=== PATIENT | female | born 1935 | race Caucasian/White ===

== ENCOUNTER → 2020-10-05 13:15 | Outpatient (CLI) | payer MEDICARE, SELFPAY ==
--- NOTE | 2020-10-05 13:21 | CT_ITS ---
STUDY: CT LEFT SHOULDER REASON FOR EXAM: Female, 85 years old. PRIMARY OSTEOARTHRITIS RADIATION DOSAGE (If Supplied By Facility): CTDIvol = ( 26.96 ) mGy, DLP = ( 525.49 ) mGycm TECHNIQUE: The patient was scanned in a multi detector CT scanner. High resolution transaxial imaging was performed without the administration of intravenous contrast material. Sagittal and coronal images were reconstructed. Individualized dose optimization techniques were used for this CT. COMPARISON: None. FINDINGS: There is severe narrowing and degeneration of the glenohumeral joint space with bony resorption/erosions seen in the glenoid as well as intraosseous cystic changes and peripheral cortical osteophyte formation of the humeral head. A moderate to large size joint effusion is present. No visualized fracture. Normal coracoid process. Normal visualized lateral clavicle. There is mild osteoarthritis with articular joint space narrowing. There is a Type II morphology (curved), with a neutral orientation. Normal visualized muscles and soft tissue structures. Left maxillary subcentimeter lymphadenopathy is present. CT/Extremity Upper without Contra IMPRESSION: 1. 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
== END ==
PROVIDERS: PCP Family Medicine; Referring Provider Specialist; Visit Provider Specialist
DX: M19.012 Primary osteoarthritis, left shoulder (principal)
CPT/HCPCS: 73200

== ENCOUNTER 2021-03-01 16:27 | Emergency (ER) | payer MEDICARE, SELFPAY ==
[2021-03-01 16:27] VITALS: BP 175/78; PULSE 87; RESP 16; TEMP 36.9; O2SAT 97
--- NOTE | 2021-03-01 16:49 | US_ITS ---
STUDY: VENOUS DOPPLER ULTRASOUND - BILATERAL LOWER EXTREMITIES REASON FOR EXAM: Female, 85 years old. undefined -- Swelling TECHNIQUE: Ultrasound evaluation of the deep vein system to include alegria-scale imaging and compression was performed. Alegria-scale imaging and Doppler sonographic evaluation, including duplex spectral analysis and qualitative color flow sonography, was performed. COMPARISON: None. FINDINGS: Examination is technically challenging due to patient''s inability to tolerate compression maneuvers. However, bilateral veins are patent without thrombosis. US/Venous Duplex Imag/Luc Extrem IMPRESSION: Normal venous Doppler ultrasound of the bilateral lower extremities. Electronically Signed: Babatunde Castellanos MD at 18:13 EDT Tel , Service support ,
--- NOTE | 2021-03-01 17:28 | ED.VIS.LOWEX ---
HPI History of Present Illness Chief Complaint: Lower Extremity Injury Narrative Narrative: 85-year-old female presenting with swelling of the bilateral lower extremities worse on the right. There is some erythema on the right leg. She states she has been dealing with this for about 4 weeks. She is currently on an antibiotic today for an infected shoulder arthroplasty on the left. She does not recall the name of the antibiotic. She denies any fever or chills. She denies chest pain, palpitations, shortness of breath. She does state that her legs are painful when she ambulates especially in the foot and ankles. She states she has no history of DVT but is also allergic to Eliquis. She states he was on this prophylactically postoperatively for a hip replacement. [facility] Medical History History of left shoulder fracture Home Medications aspirin 81 mg PO DAILY@0800 #30 tab.chew 05/26/15 [Rx Last Taken Unknown] famotidine 20 mg PO DAILY #30 tablet 05/26/15 [Rx Last Taken Unknown] multivitamin,df-zmfi-rcxtbsbq [Therems-M] 1 tab PO DAILYCM #30 tablet 05/26/15 [Rx Last Taken Unknown] acetaminophen [Tylenol] 650 mg PO Q6H PRN PRN 28 Days tablet 07/31/15 [Rx Last Taken Unknown] apixaban [Eliquis] 5 mg PO BID #60 tablet 08/03/15 [Rx Last Taken Unknown] celecoxib 200 mg PO BID #60 capsule 08/03/15 [Rx Last Taken Unknown] famotidine 20 mg PO DAILY #30 tablet 08/03/15 [Rx Last Taken Unknown] hydrocodone-acetaminophen 1 tab PO Q6H PRN PRN #30 tablet 08/03/15 [Rx Last Taken Unknown] iron aspgl,ps complex-vit C-sa [Ferrex 150 Plus] 150 mg PO DAILY@0800 #30 capsule 08/03/15 [Rx Last Taken Unknown] sulfamethoxazole-trimethoprim 1 tab PO BIDCM #10 tablet 08/03/15 [Rx Last Taken Unknown] Allergy/AdvReac Type Severity Reaction Status Date / Time Penicillins AdvReac Mild DOES NOT Verified 03/01/21 16:30 WANT IT/ AFRAID cefdinir AdvReac Other Verified 03/01/21 16:30 BLOOD THINNER UNSURE AdvReac Other Uncoded 03/01/21 16:31 Social History Smoking Status: Never smoker ROS ROS ED Constitutional Constitutional ED: Denies chills or fever(s) Eyes Eyes: Denies blurry vision or diplopia ENT ENT ED: Denies rhinorrhea or sore throat Cardiovascular Cardiovascular: Denies chest pain or palpitations Respiratory/Chest Respiratory/Chest: Denies cough, dyspnea or sputum Gastrointestinal Gastrointestinal: Denies abdominal pain, nausea or vomiting Genitourinary Genitourinary ED: Denies dysuria or hematuria Musculoskeletal Musculoskeletal: Reports other Details: Bilateral leg swelling and pain. Integumentary Reports other Details: Erythema to the right tibia Neurologic Neurologic: Denies headache(s) or weakness EXAM Physical Exam Const Vital Signs: 03/01/21 16:27 Temperature 98.4 F Temperature Source Temporal Pulse Rate 87 Respiratory Rate 16 Blood Pressure 175/78 H Blood Pressure Mean 110 Pulse Ox 97 Oxygen Delivery Method Room Air Positive obese General Appearance ED: NAD Nutritional Appearance: obese HEENT Reports moist mucous membranes normocephalic Eyes PERRL Resp normal respiratory effort and clear to auscultation bilaterally Cardio regular rate and regular rhythm GI non-tender Palpation: soft Extremity full ROM General Extremety ED: Yes edema General Extremity: edema Neuro oriented x3 Sensorium / Orientation: alert Skin Skin Narrative: Erythema to right tibia. Minimally tender to palpation. No crepitance. Mildly increased warmth. MDM MDM MDM Narrative Medical decision making narrative: Patient presenting with lower extremity swelling and some right tibial erythema and apparently this has been going on for about 4 weeks. She was sent to have a DVT studies of the bilateral lower extremities. It does appear that she may have an order for this as an outpatient but did check into the ER. She denies any fever, chills, chest pain, palpitations, shortness of breath. She does have pain when she ambulates. She also has does have some edema the bilateral lower extremities. Patient was prescribed Lasix and has been on doxycycline for a left shoulder infection status post left shoulder arthroplasty. Patient has not had any problems with the left shoulder. The dressing looks clean dry and intact. I did obtain DVT studies which were negative. I did speak with Dr. Jeffery Beasley who is on-call for Dr. Seaman because her paperwork shows that she is supposed to be on 4 times daily Keflex although the prescriptions portion only shows a prescription for Lasix and no Keflex is ordered. She recommended that since this is been going on for weeks that she just call the office tomorrow and I will determine whether to put her on a different antibiotic. This was discussed with the patient and she will be discharged home in stable condition. Impression: 1. Bilateral lower extremity edema Discharge Plan Triage Chief Complaint: Lower Extremity Injury ED Provider: Edgar Nolen Dx/Rx/DC Orders Prescriptions: No Action famotidine 20 MG tablet 20 mg PO DAILY Qty: 30 RF: 0 aspirin 81 MG Tab.Chew 81 mg PO DAILY@0800 Qty: 30 RF: 0 multivitamin,ih-bcfw-fckcvggh [Therems-M] 1 TABLET tablet 1 tab PO DAILYCM Qty: 30 RF: 0 acetaminophen [Tylenol] 325 MG tablet 650 mg PO Q6H PRN PRN (Reason: Pain) 28 Days RF: 0 hydrocodone-acetaminophen 1 TABLET tablet 1 tab PO Q6H PRN PRN (Reason: Severe Pain (6-10)) Qty: 30 RF: 0 famotidine 20 MG tablet 20 mg PO DAILY Qty: 30 RF: 0 iron aspgl,ps complex-vit C-sa [Ferrex 150 Plus] 150 MG capsule 150 mg PO DAILY@0800 Qty: 30 RF: 0 celecoxib 200 MG capsule 200 mg PO BID Qty: 60 RF: 0 sulfamethoxazole-trimethoprim 1 TABLET tablet 1 tab PO BIDCM Qty: 10 RF: 0 apixaban [Eliquis] 5 MG tablet 5 mg PO BID Qty: 60 RF: 2 Primary Care Provider: Colby Cortes
[2021-03-01 18:34] VITALS: BP 159/71; PULSE 79; RESP 16; O2SAT 97
== END 2021-03-01 18:35 | disposition home or self-care (01) ==
PROVIDERS: Emergency Provider Student in an Organized Health Care Education/Training Program; PCP Family Medicine
DX: R60.0 Localized edema (principal); M79.604 Pain in right leg; M79.605 Pain in left leg; Z79.82 Long term (current) use of aspirin
CPT/HCPCS: 93970; 99282; A4216

== ENCOUNTER 2021-10-19 09:30 | Outpatient (RCR) | payer MEDICARE, SELFPAY ==
[2021-10-12 09:08] VITALS: BP 161/89; PULSE 104; TEMP 36.1; BMI 28.7
--- NOTE | 2021-10-12 12:47 | PCM.WC.HP ---
History of Present Illness Date of Service: 10/12/21 Chief Complaint: Bilateral lower extremity swelling and edema associated with pain, aching, and discomfort History of Wound: This is an 86-year-old female who presents with swelling and edema in her lower extremities bilaterally, which is associated with pain, aching, and discomfort. Her symptoms and manifestations have developed over the last year. Shortly prior to the development of these symptoms and manifestations, the patient began sleeping upright in a recliner, having undergone shoulder surgery which made it difficult for her to sleep on a flat mattress. As result, she began sleeping upright in a recliner approximately 1 year ago. Following her habit of sleeping in a recliner, she began to note swelling in her lower extremities. Furthermore, she is not very active during daytime hours, and sits idlly for a good part of each day. She has graduated compression stockings of 15 to 20 mmHg compression, which she wears inconsistently. In addition, her primary care physician has prescribed a water pill. She presents for evaluation stating My legs?they hurt. [facility] Medical History (Updated 10/12/21 @ 12:[address] Aroldo Whittaker MD) Arthritis Dependent edema History of left shoulder fracture Hyperpigmentation Leg edema Leg pain Leg swelling Lipodermatosclerosis Home Medications aspirin 81 mg PO DAILY@0800 #30 tab.chew 05/26/15 [Rx Last Taken Unknown] famotidine 20 mg PO DAILY #30 tablet 05/26/15 [Rx Last Taken Unknown] multivitamin,oi-ibag-caehyukx [Therems-M] 1 tab PO DAILYCM #30 tablet 05/26/15 [Rx Last Taken Unknown] acetaminophen [Tylenol] 650 mg PO Q6H PRN PRN 28 Days tablet 07/31/15 [Rx Last Taken Unknown] apixaban [Eliquis] 5 mg PO BID #60 tablet 08/03/15 [Rx Last Taken Unknown] celecoxib 200 mg PO BID #60 capsule 08/03/15 [Rx Last Taken Unknown] famotidine 20 mg PO DAILY #30 tablet 08/03/15 [Rx Last Taken Unknown] hydrocodone-acetaminophen 1 tab PO Q6H PRN PRN #30 tablet 08/03/15 [Rx Last Taken Unknown] iron aspgl,ps complex-vit C-sa [Ferrex 150 Plus] 150 mg PO DAILY@0800 #30 capsule 08/03/15 [Rx Last Taken Unknown] sulfamethoxazole-trimethoprim 1 tab PO BIDCM #10 tablet 08/03/15 [Rx Last Taken Unknown] Allergy/AdvReac Type Severity Reaction Status Date / Time Penicillins AdvReac Mild DOES NOT Verified 03/01/21 16:30 WANT IT/ AFRAID cefdinir AdvReac Other Verified 03/01/21 16:30 BLOOD THINNER UNSURE AdvReac Other Uncoded 03/01/21 16:31 Surgical History (Updated 10/12/21 @ 12:[address] 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, right Social History Smoking Status: Never smoker Vital Signs Vital Signs Vital Signs: 10/12/21 09:08 Temperature 97.0 F L Temperature Source Temporal Pulse Rate 104 H Blood Pressure 161/89 H Blood Pressure Mean 113 Blood Pressure Source Monitor Blood Pressure Position Sitting Blood Pressure Location Left Arm Weight Weight: 178 lb Body Mass Index (BMI) 28.7 Physical Exam Const alert, oriented x3, no apparent distress and well nourished General Appearance: cooperative, comfortable, well kempt and well developed Orientation / Consciousness: awake, oriented to person, oriented to place and oriented to time HEENT normocephalic and head/scalp atraumatic Head and Scalp: normal to inspection, normocephalic and atraumatic External Ear: external ears normal Eyes PERRL and EOMs intact bilaterally General Eye: normal appearance of both eyes Resp normal respiratory effort, normal air movement, no retractions and no use of accessory muscles Effort and Inspection: able to speak in complete sentences Extremity no calf tenderness Extremity Narrative: Swelling and edema are noted bilaterally in the patient's lower extremities. Hyperpigmentation and lipodermatosclerosis is noted bilaterally in the gaiter areas. There are no open wounds or ulcerations. There are no significant dermatitic changes. General Extremity: Negative for clubbing or cyanosis Neuro oriented x3, CN's II-XII intact bilaterally and moves all extremities Sensorium / Orientation: awake, alert, oriented to person, oriented to place and oriented to time Psych Appearance: grossly normal and appropriate Attitude: calm Activity / Motor Behavior: appropriate eye contact Speech: normal speech Mood & Affect: euthymic mood Thought Process: normal thought process Thought Content: normal thought content Attention / Concentration: attention grossly intact Debridement Note Debridement Note No debridement was completed: No debridement was completed today (There are no open wounds or ulcerations) Post-Debridement Measurements and Additional Note: Post-Debridement Measurements/Treatment JAMARCUS - Nurse 1 - General Ulcer Assessment Start: 10/12/21 09:07 Freq: Status: Active Protocol: RUTH Activity Type Activity Date Activity User E-Sign Co-Sign Detail Recorded Client Recorded Date Recorded By Document 10/12/21 09:08 KATIA [id number] 10/12/21 09:14 KATIA 10/12/21 09:08 WC - Today's Visit Information Type of service Initial Visit Arrival Mode Ambulatory Accompanied by Patient Identification Verified (Name & Yes ) Height and Weight Height 5 ft 6 in Weight 178 lb Weight in Pounds 178.0 lbs Body Mass Index (BMI) 28.7 BMI Classification Overweight BSA - Jennifer 1.90 Vital Signs Temperature (97.8 F-99.1 F) 97.0 F L Temperature Source Temporal Pulse Rate (60-100) 104 H Pulse Location Monitor Blood Pressure (90/60-120/80) 161/89 H Blood Pressure Mean 113 Source Monitor Position Sitting Blood Pressure Location Left Arm History Since Last Visit- (Skip if this is Patient's initial visit) Any new allergies or adverse reactions No Had a fall/change in ADL's that may No increase risk of falls Signs or symptoms of abuse and/or No neglect since last visit Have you been in the hospital since your No last visit? Has dressing in place as prescribed No Has compression in place as prescribed N/A Has offloadiing in place as prescribed N/A Experienced any changes in pain level or No management Left Footwear Regular Shoe Right Footwear Regular Shoe Pain Scale: 0-10 Numeric Is Patient Pain Free? Yes - Nurse 1 - General Ulcer Measurement Start: 10/12/21 09:07 Freq: Status: Active Protocol: Activity Type Activity Date Activity User E-Sign Co-Sign Detail Recorded Client Recorded Date Recorded By Document 10/12/21 09:08 KATIA [id number] 10/12/21 09:14 KATIA 10/12/21 09:08 Wound Center Nurse 1 Right Calf (cm) 40.5 Right Ankle (cm) 26 Left Calf (cm) 40 Left Ankle (cm) 28 WC - Nurse 2 - General Ulcer CM Notes Start: 10/12/21 09:07 Freq: Status: Active Protocol: Activity Type Activity Date Activity User E-Sign Co-Sign Detail Recorded Client Recorded Date Recorded By Document 10/12/21 09:36 PL [id number] 10/12/21 09:37 PL 10/12/21 09:36 Pain Scale: 0-10 Numeric Is Patient Pain Free? Yes WC - Nurse 3 - General Ulcer D/C NN Start: 10/12/21 09:07 Freq: Status: Active Protocol: Activity Type Activity Date Activity User E-Sign Co-Sign Detail Recorded Client Recorded Date Recorded By Document 10/12/21 09:34 KR [id number] 10/12/21 09:35 KR 10/12/21 09:34 Wound Care Nurse 3 Left -Multi-Layered Wrap Application Multi-Layer Comp - Bilat ($ ) Pain Scale: 0-10 Numeric Is Patient Pain Free? Yes WC - Visit Discharge Discharge Condition Stable Ambulatory Status Ambulatory Transportation Private Auto Accompanied by Assessment/Plan Assessment/Plan (1) Leg pain: CODE(S): M79.606 - Pain in leg, unspecified QUALIFIERS: Laterality: bilateral Qualified Code(s): M79.604 - Pain in right leg; M79.605 - Pain in left leg (2) Hyperpigmentation: CODE(S): L81.9 - Disorder of pigmentation, unspecified (3) Lipodermatosclerosis: CODE(S): I83.10 - Varicose veins of unspecified lower extremity with inflammation (4) Leg edema: CODE(S): R60.0 - Localized edema (5) Leg swelling: CODE(S): M79.89 - Other specified soft tissue disorders (6) Dependent edema: CODE(S): R60.9 - Edema, unspecified (7) Osteoarthritis of hips, bilateral: CODE(S): M16.0 - Bilateral primary osteoarthritis of hip (8) Status post total hip replacement, left: CODE(S): Z96.642 - Presence of left artificial hip joint (9) Status post total hip replacement, right: CODE(S): Z96.641 - Presence of right artificial hip joint (10) Status post replacement of left shoulder joint: CODE(S): Z96.612 - Presence of left artificial shoulder joint (11) GERD (gastroesophageal reflux disease): CODE(S): K21.9 - Gastro-esophageal reflux disease without esophagitis (12) History of arthroplasty of right hip: CODE(S): Z96.641 - Presence of right artificial hip joint (13) Arthritis: CODE(S): M19.90 - Unspecified osteoarthritis, unspecified site PLAN: This is an 86-year-old female with swelling and edema in her lower extremities, associated with pain. It appears as though the patient began sleeping in a recliner approximately 1 year ago, following left shoulder replacement surgery. Not long after, she began to develop swelling and edema in her legs, associated with pain, aching, and discomfort. She is not very active, and does not ambulate a great deal. She sits a good deal throughout each day. She is obese. She has graduated compression stockings, which she has been wearing inconsistently. Physical examination reveals swelling and edema with hyperpigmentation and lipodermatosclerosis in the gaiter areas bilaterally. It appears as though the patient's daily habits are contributing to her presenting symptoms and manifestations. We have discussed conservative treatment measures including leg elevation, avoidance of idle standing and sitting, active lifestyle, compression, weight control measures, and [id number] analgesics. Patient has been discouraged from sleeping in a recliner. She has been advised to sleep on a flat mattress at night. Leg elevation is to be implemented even during daytime hours. Her legs are to be elevated to heart level, or higher. Activity has been encouraged. Weight loss has been recommended. Prolonged idle sitting has been discouraged. We are to implement compression to the lower extremities initially by means of 3M 2 layer compression wraps, which will be changed twice weekly. It is anticipated that the compression in the lower extremities with other measures well result in a decrease of swelling, following which the patient can be fitted with graduated compression stockings or Velcro compression garment for long-term use. Patient is to return in 1 week for reevaluation. Total time: 29 minutes
[2021-10-14 14:00] VITALS: BP 156/97; PULSE 91; RESP 18; TEMP 36.1; BMI 28.7
[2021-10-19 10:04] VITALS: BP 161/72; PULSE 84; RESP 20; TEMP 36.3; BMI 28.7
--- NOTE | 2021-10-19 12:41 | HP.PCM_ITS ---
History of Present Illness Date of Service: 10/19/21 Chief Complaint: Bilateral lower extremity swelling and edema associated with pain, aching, and discomfort History of Wound: This is an 86-year-old female who presented with swelling and edema in her lower extremities bilaterally, which was associated with pain, aching, and discomfort. Her symptoms and manifestations developed over the last year. Shortly prior to the development of these symptoms and manifestations, the patient began sleeping upright in a recliner, having undergone shoulder surgery which made it difficult for her to sleep on a flat mattress. As result, she began sleeping upright in a recliner approximately 1 year ago. Following her habit of sleeping in a recliner, she began to note swelling in her lower extremities. Furthermore, she is not very active during daytime hours, and sits idlly for a good part of each day. She has graduated compression stockings of 15 to 20 mmHg compression, which she wears inconsistently. In addition, her primary care physician has prescribed a water pill. She presented for eval uation stating My legs?they hurt. [facility] Medical History Arthritis Dependent edema History of left shoulder fracture Hyperpigmentation Leg edema Leg pain Leg swelling Lipodermatosclerosis Home Medications aspirin 81 mg PO DAILY@0800 #30 tab.chew 05/26/15 [Rx Last Taken Unknown] famotidine 20 mg PO DAILY #30 tablet 05/26/15 [Rx Last Taken Unknown] multivitamin,uk-wsbs-pjgpoxib [Therems-M] 1 tab PO DAILYCM #30 tablet 05/26/15 [Rx Last Taken Unknown] acetaminophen [Tylenol] 650 mg PO Q6H PRN PRN 28 Days tablet 07/31/15 [Rx Last Taken Unknown] apixaban [Eliquis] 5 mg PO BID #60 tablet 08/03/15 [Rx Last Taken Unknown] celecoxib 200 mg PO BID #60 capsule 08/03/15 [Rx Last Taken Unknown] famotidine 20 mg PO DAILY #30 tablet 08/03/15 [Rx Last Taken Unknown] hydrocodone-acetaminophen 1 tab PO Q6H PRN PRN #30 tablet 08/03/15 [Rx Last Taken Unknown] iron aspgl,ps complex-vit C-sa [Ferrex 150 Plus] 150 mg PO DAILY@0800 #30 capsule 08/03/15 [Rx Last Taken Unknown] sulfamethoxazole-trimethoprim 1 tab PO BIDCM #10 tablet 08/03/15 [Rx Last Taken Unknown] Allergy/AdvReac Type Severity Reaction Status Date / Time Penicillins AdvReac Mild DOES NOT Verified 03/01/21 16:30 WANT IT/ AFRAID cefdinir AdvReac Other Verified 03/01/21 16:30 BLOOD THINNER UNSURE AdvReac Other Uncoded 03/01/21 16:31 Surgical History 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, right Social History Smoking Status: Never smoker Vital Signs Vital Signs Vital Signs: 10/19/21 10:04 Temperature 97.3 F L Temperature Source Temporal Pulse Rate 84 Respiratory Rate 20 H Blood Pressure 161/72 H Blood Pressure Mean 101 Blood Pressure Source Monitor Weight Weight: 178 lb Body Mass Index (BMI) 28.7 Physical Exam Const alert, oriented x3, no apparent distress, average body habitus and well nourished General Appearance: cooperative, comfortable, well kempt and well developed Orientation / Consciousness: awake, oriented to person, oriented to place and oriented to time HEENT normocephalic, head/scalp atraumatic and hearing grossly normal bilaterally Head and Scalp: normal to inspection, normocephalic and atraumatic External Ear: external ears normal Eyes PERRL and EOMs intact bilaterally General Eye: normal appearance of both eyes Resp normal respiratory effort, normal air movement, no retractions and no use of accessory muscles Effort and Inspection: able to speak in complete sentences Extremity no calf tenderness General Extremity: Negative for clubbing or cyanosis Skin Wound Narrative: There are no open wounds or ulcerations. Mild lipodermatosclerosis and hyperpigmentation are noted in the gaiter areas bilaterally. Bilateral lower extremity swelling and edema are noted. Swelling in the right lower extremity is diminished, and nearly abated. Mild swelling persists in the patient's left lower extremity. Neuro oriented x3, CN's II-XII intact bilaterally and moves all extremities Sensorium / Orientation: awake, alert, oriented to person, oriented to place and oriented to time Psych Appearance: grossly normal and appropriate Attitude: calm Activity / Motor Behavior: appropriate eye contact Speech: normal speech Mood & Affect: euthymic mood Thought Process: normal thought process Thought Content: normal thought content Attention / Concentration: attention grossly intact Debridement Note Debridement Note No debridement was completed: No debridement was completed today (There are no open wounds or ulcerations.) Post-Debridement Measurements and Additional Note: Post-Debridement Measurements/Treatment - Nurse 1 - General Ulcer Assessment Start: 10/12/21 09:07 Freq: Status: Active Protocol: RUTH Activity Type Activity Date Activity User E-Sign Co-Sign Detail Recorded Client Recorded Date Recorded By Document 10/12/21 09:08 KR [id number] 10/12/21 09:14 KR Document 10/14/21 14:00 RB [id number] 10/14/21 14:03 RB Document 10/19/21 10:04 DL [id number] 10/19/21 10:13 DL 10/12/21 10/14/21 10/19/21 09:08 14:00 10:04 - Today's Visit Information Type of service Initial Visit Nurse-only Follow-up Visit Visit (Physician/ELECTRICAL MAINTENANCE TECHNICIAN ) Arrival Mode Ambulatory Ambulatory Ambulatory Transfer Assistance None None Accompanied by Patient Identification Verified (Name & Yes Yes Yes ) Patient Requires Transmission-Based No No Precautions Height and Weight Height 5 ft 6 in Weight 178 lb Weight in Pounds 178.0 lbs Body Mass Index (BMI) 28.7 28.7 28.7 BMI Classification Overweight Overweight Overweight BSA - Jennifer 1.90 Vital Signs Temperature (97.8 F-99.1 F) 97.0 F L 97 F L 97.3 F L Temperature Source Temporal Temporal Temporal Pulse Rate (60-100) 104 H 91 84 Pulse Location Monitor Monitor Monitor Respiratory Rate (12-18) 18 20 H Respiratory rate source Observation Observation Blood Pressure (90/60-120/80) 161/89 H 156/97 H 161/72 H Blood Pressure Mean 113 116 101 Source Monitor Monitor Monitor Position Sitting Semi-Fowlers Blood Pressure Location Left Arm Left Arm History Since Last Visit- (Skip if this is Patient's initial visit) Have you changed medications since your No No last visit? Any new allergies or adverse reactions No No No Had a fall/change in ADL's that may No No No increase risk of falls Signs or symptoms of abuse and/or No No No neglect since last visit Have you been in the hospital since your No No No last visit? Has dressing in place as prescribed No Yes Yes Has compression in place as prescribed N/A Yes Yes Has offloadiing in place as prescribed N/A No N/A Experienced any changes in pain level or No No No management Left Footwear Regular Shoe Right Footwear Regular Shoe Pain Scale: 0-10 Numeric Is Patient Pain Free? Yes Yes Yes - Nurse 1 - General Ulcer Measurement Start: 10/12/21 09:07 Freq: Status: Active Protocol: Activity Type Activity Date Activity User E-Sign Co-Sign Detail Recorded Client Recorded Date Recorded By Document 10/12/21 09:08 KR [id number] 10/12/21 09:14 KR Document 10/14/21 14:00 RB [id number] 10/14/21 14:03 RB Document 10/19/21 10:04 DL [id number] 10/19/21 10:13 DL 10/12/21 10/14/21 10/19/21 09:08 14:00 10:04 Wound Center Nurse 1 Lower Limb Edema Present Yes Right Calf (cm) 40.5 38 37.5 Right Ankle (cm) 26 24 23.4 Left Calf (cm) 40 39 37.5 Left Ankle (cm) 28 27.5 25.5 - Nurse 2 - General Ulcer CM Notes Start: 10/12/21 09:07 Freq: Status: Active Protocol: Activity Type Activity Date Activity User E-Sign Co-Sign Detail Recorded Client Recorded Date Recorded By Document 10/12/21 09:36 PL [id number] 10/12/21 09:37 PL 10/12/21 09:36 Pain Scale: 0-10 Numeric Is Patient Pain Free? Yes - Nurse 3 - General Ulcer D/C NN Start: 10/12/21 09:07 Freq: Status: Active Protocol: Activity Type Activity Date Activity User E-Sign Co-Sign Detail Recorded Client Recorded Date Recorded By Document 10/12/21 09:34 KR [id number] 10/12/21 09:35 KR Document 05/26/22 14:00 RB [id number] 10/14/21 14:03 RB Document 10/19/21 10:59 AK [id number] 10/19/21 11:00 AK 10/12/21 10/14/21 10/19/21 09:34 14:00 10:59 Wound Care Nurse 3 bilat -Lotion applied to leg before No compression wrap -Multi-Layered Wrap Application Multi-Layer Multi-Layer Comp - Bilat ($ Comp - Bilat ($ ) ) Left -Multi-Layered Wrap Application Multi-Layer Comp - Bilat ($ ) Treatment Response Procedure Tolerated Well Vital Signs Temperature (97.8 F-99.1 F) 97 F L Temperature Source Temporal Pulse Rate (60-100) 91 Pulse Location Monitor Respiratory Rate (12-18) 18 Respiratory rate source Observation Blood Pressure (90/60-120/80) 156/97 H Blood Pressure Mean 116 Source Monitor Position Semi-Fowlers Blood Pressure Location Left Arm Pain Scale: 0-10 Numeric Is Patient Pain Free? Yes Yes Yes WC - Visit Discharge Discharge Condition Stable Stable Stable Ambulatory Status Ambulatory Ambulatory Ambulatory Transportation Private Auto Private Auto Private Auto Accompanied by Medication Reconcilliation completed & No Yes provided to patient/care provider Clinical Summary of Care Provided Yes Yes Assessment/Plan Assessment/Plan (1) Leg edema: CODE(S): R60.0 - Localized edema (2) Leg swelling: CODE(S): M79.89 - Other specified soft tissue disorders (3) Leg pain: CODE(S): M79.606 - Pain in leg, unspecified QUALIFIERS: Laterality: bilateral Qualified Code(s): M79.604 - Pain in right leg; M79.605 - Pain in left leg (4) Dependent edema: CODE(S): R60.9 - Edema, unspecified (5) Arthritis: CODE(S): M19.90 - Unspecified osteoarthritis, unspecified site (6) Lipodermatosclerosis: CODE(S): I83.10 - Varicose veins of unspecified lower extremity with inflammation (7) Hyperpigmentation: CODE(S): L81.9 - Disorder of pigmentation, unspecified (8) Status post replacement of left shoulder joint: CODE(S): Z96.612 - Presence of left artificial shoulder joint (9) Status post total hip replacement, right: CODE(S): Z96.641 - Presence of right artificial hip joint (10) 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 with presence of antibiotic-impregnated cement spacer: CODE(S): Z89.629 - Acquired absence of unspecified hip joint QUALIFIERS: Laterality: left Qualified Code(s): Z89.622 - Acquired absence of left hip joint (11) Osteoarthritis of hips, bilateral: CODE(S): M16.0 - Bilateral primary osteoarthritis of hip (12) History of arthroplasty of right hip: CODE(S): Z96.641 - Presence of right artificial hip joint (13) GERD (gastroesophageal reflux disease): CODE(S): K21.9 - Gastro-esophageal reflux disease without esophagitis PLAN: This is an 86-year-old female with swelling and edema in her lower extremities, associated with pain. It appears as though the patient began sleeping in a recliner approximately 1 year ago, following left shoulder replacement surgery. Not long after, she began to develop swelling and edema in her legs, associated with pain, aching, and discomfort. She is not very active, and does not ambulate a great deal. She sits a good deal throughout each day. She is obese. She has graduated compression stockings, which she has been wearing inconsistently. Physical examination reveals swelling and edema with hyperpigmentation and lipodermatosclerosis in the gaiter areas bilaterally. It appears as though the patient's daily habits are contributing to her presenting symptoms and manifestations. We have discussed conservative treatment measures including leg elevation, avoidance of idle standing and sitting, active lifestyle, compression, weight control measures, and fkxd-txn-padnyih analgesics. Patient has been discouraged from sleeping in a recliner. She has been advised to sleep on a flat mattress at night. Leg elevation is to be implemented even during daytime hours. Her legs are to be elevated to heart level, or higher. Activity has been encouraged. Weight loss has been recommended. Prolonged idle sitting has been discouraged. We are to continue compression to the lower extremities by means of 3M 2 layer compression wraps, which will be changed twice weekly. It is anticipated that the compression in the lower extremities with other measures well result in a decrease of swelling, following which the patient can be fitted with graduated compression stockings or Velcro compression garments for long-term use. Patient is to return in 1 week for reevaluation. Total time: 28 minutes
== END 2021-10-19 23:59 | disposition home or self-care (01) ==
LOC: WC 09:30
PROVIDERS: PCP Family Medicine; Visit Provider Surgery
DX: I83.11 Varicose veins of right lower extremity with inflammation (principal); I83.12 Varicose veins of left lower extremity with inflammation; M16.0 Bilateral primary osteoarthritis of hip; M79.605 Pain in left leg; M79.604 Pain in right leg; K21.9 Gastro-esophageal reflux disease without esophagitis; R60.0 Localized edema; Z79.82 Long term (current) use of aspirin; Z79.899 Other long term (current) drug therapy; Z79.01 Long term (current) use of anticoagulants; Z96.612 Presence of left artificial shoulder joint; Z96.641 Presence of right artificial hip joint
CPT/HCPCS: 29581; 99213; G0463

== ENCOUNTER 2021-11-16 10:15 | Outpatient (RCR) | payer MEDICARE, SELFPAY ==
[2021-10-20 01:17] VITALS: BP 161/72; PULSE 84; RESP 20; TEMP 36.3; BMI 28.7
[2021-10-22 10:10] VITALS: BP 165/90; PULSE 93; TEMP 36.4; BMI 28.7
[2021-10-26 10:24] VITALS: BP 159/83; PULSE 93; TEMP 35.9; BMI 28.7
--- NOTE | 2021-10-26 12:26 | PCM.WC.HP ---
History of Present Illness Date of Service: 10/26/21 Chief Complaint: Bilateral lower extremity swelling and edema associated with pain, aching, and discomfort History of Wound: This is an 86-year-old female who presented with swelling and edema in her lower extremities bilaterally, which was associated with pain, aching, and discomfort. Her symptoms and manifestations developed over the last year. Shortly prior to the development of these symptoms and manifestations, the patient began sleeping upright in a recliner, having undergone shoulder surgery which made it difficult for her to sleep on a flat mattress. As result, she began sleeping upright in a recliner approximately 1 year ago. Following her habit of sleeping in a recliner, she began to note swelling in her lower extremities. Furthermore, she is not very active during daytime hours, and sits idlly for a good part of each day. She has graduated compression stockings of 15 to 20 mmHg compression, which she wears inconsistently. In addition, her primary care physician has prescribed a water pill. She presented for evaluation stating My legs?they hurt. [facility] Medical History Arthritis Dependent edema History of left shoulder fracture Hyperpigmentation Leg edema Leg pain Leg swelling Lipodermatosclerosis Home Medications aspirin 81 mg PO DAILY@0800 #30 tab.chew 05/26/15 [Rx Last Taken Unknown] famotidine 20 mg PO DAILY #30 tablet 05/26/15 [Rx Last Taken Unknown] multivitamin,ee-axxp-znlfnecv [Therems-M] 1 tab PO DAILYCM #30 tablet 05/26/15 [Rx Last Taken Unknown] acetaminophen [Tylenol] 650 mg PO Q6H PRN PRN 28 Days tablet 07/31/15 [Rx Last Taken Unknown] apixaban [Eliquis] 5 mg PO BID #60 tablet 08/03/15 [Rx Last Taken Unknown] celecoxib 200 mg PO BID #60 capsule 08/03/15 [Rx Last Taken Unknown] famotidine 20 mg PO DAILY #30 tablet 08/03/15 [Rx Last Taken Unknown] hydrocodone-acetaminophen 1 tab PO Q6H PRN PRN #30 tablet 08/03/15 [Rx Last Taken Unknown] iron aspgl,ps complex-vit C-sa [Ferrex 150 Plus] 150 mg PO DAILY@0800 #30 capsule 08/03/15 [Rx Last Taken Unknown] sulfamethoxazole-trimethoprim 1 tab PO BIDCM #10 tablet 08/03/15 [Rx Last Taken Unknown] Allergy/AdvReac Type Severity Reaction Status Date / Time Penicillins AdvReac Mild DOES NOT Verified 03/01/21 16:30 WANT IT/ AFRAID cefdinir AdvReac Other Verified 03/01/21 16:30 BLOOD THINNER UNSURE AdvReac Other Uncoded 03/01/21 16:31 Surgical History 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, right Social History Smoking Status: Never smoker Vital Signs Vital Signs Vital Signs: 10/26/21 10:24 Temperature 96.7 F L Temperature Source Temporal Pulse Rate 93 Blood Pressure 159/83 H Blood Pressure Mean 108 Blood Pressure Source Monitor Blood Pressure Position Sitting Blood Pressure Location Right Arm Weight Weight: 178 lb Body Mass Index (BMI) 28.7 Physical Exam Const alert, oriented x3, no apparent distress and well nourished General Appearance: cooperative, comfortable, well kempt and well developed Orientation / Consciousness: awake, oriented to person, oriented to place and oriented to time HEENT normocephalic, head/scalp atraumatic and hearing grossly normal bilaterally Head and Scalp: normal to inspection, normocephalic and atraumatic External Ear: external ears normal Eyes PERRL and EOMs intact bilaterally General Eye: normal appearance of both eyes Resp normal respiratory effort, normal air movement, no retractions and no use of accessory muscles Effort and Inspection: able to speak in complete sentences Extremity no calf tenderness General Extremity: Negative for clubbing or cyanosis Skin Wound Narrative: There are no feng open wounds or ulcerations in the patient's lower extremities. The swelling for which she has been recently treated is now much diminished, and virtually negligible. Mild hyperpigmentation and lipodermatosclerosis are noted in the gaiter areas bilaterally. Neuro oriented x3, CN's II-XII intact bilaterally and moves all extremities Sensorium / Orientation: awake, alert, oriented to person, oriented to place and oriented to time Psych Appearance: grossly normal and appropriate Attitude: calm Activity / Motor Behavior: appropriate eye contact Speech: normal speech Mood & Affect: euthymic mood Thought Process: normal thought process Thought Content: normal thought content Attention / Concentration: attention grossly intact Debridement Note Debridement Note No debridement was completed: No debridement was completed today (There are no open wounds or ulcerations.) Post-Debridement Measurements and Additional Note: Post-Debridement Measurements/Treatment JAMARCUS Blas Nurse 1 - General Ulcer Assessment Start: 10/22/21 10:10 Freq: Status: Active Protocol: RUTH Activity Type Activity Date Activity User E-Sign Co-Sign Detail Recorded Client Recorded Date Recorded By Document 10/22/21 10:10 KATIA [id number] 10/22/21 10:12 KR Document 10/26/21 10:24 KATIA [id number] 10/26/21 10:25 KR 10/22/21 10/26/21 10:10 10:24 JAMARCUS - Today's Visit Information Type of service Follow-up Visit Follow-up Visit (Physician/TRIAL MANAGER (Physician/TRIAL MANAGER ) ) Arrival Mode Ambulatory Ambulatory Patient Identification Verified (Name & Yes Yes ) Height and Weight Body Mass Index (BMI) 28.7 28.7 BMI Classification Overweight Overweight Vital Signs Temperature (97.8 F-99.1 F) 97.5 F L 96.7 F L Temperature Source Temporal Temporal Pulse Rate (60-100) 93 93 Pulse Location Monitor Monitor Blood Pressure (90/60-120/80) 165/90 H 159/83 H Blood Pressure Mean 115 108 Source Monitor Monitor Position Sitting Sitting Blood Pressure Location Left Arm Right Arm History Since Last Visit- (Skip if this is Patient's initial visit) Have you changed medications since your No No last visit? Any new allergies or adverse reactions No No Had a fall/change in ADL's that may No No increase risk of falls Signs or symptoms of abuse and/or No No neglect since last visit Have you been in the hospital since your No No last visit? Has dressing in place as prescribed No No Has compression in place as prescribed Yes Yes Has offloadiing in place as prescribed N/A N/A Experienced any changes in pain level or No No management Left Footwear Regular Shoe Regular Shoe Right Footwear Regular Shoe Regular Shoe Pain Scale: 0-10 Numeric Is Patient Pain Free? Yes Yes JAMARCUS Blas Nurse 1 - General Ulcer Measurement Start: 10/22/21 10:10 Freq: Status: Active Protocol: Activity Type Activity Date Activity User E-Sign Co-Sign Detail Recorded Client Recorded Date Recorded By Document 10/26/21 10:24 KR [id number] 10/26/21 10:25 KR 10/26/21 10:24 Wound Center Nurse 1 Right Calf (cm) 36 Right Ankle (cm) 24 Left Calf (cm) 37.5 Left Ankle (cm) 26 WC - Nurse 3 - General Ulcer D/C NN Start: 10/22/21 10:10 Freq: Status: Active Protocol: Activity Type Activity Date Activity User E-Sign Co-Sign Detail Recorded Client Recorded Date Recorded By Document 10/22/21 10:10 KR [id number] 10/22/21 10:12 KR Document 10/26/21 11:01 ML [id number] 10/26/21 11:02 ML 10/22/21 10/26/21 10:10 11:01 Vital Signs Temperature (97.8 F-99.1 F) 97.5 F L Temperature Source Temporal Pulse Rate (60-100) 93 Pulse Location Monitor Blood Pressure (90/60-120/80) 165/90 H Blood Pressure Mean 115 Source Monitor Position Sitting Blood Pressure Location Left Arm Pain Scale: 0-10 Numeric Is Patient Pain Free? Yes Yes Wound Care Nurse 3 Right -Tubular Bandage Single Layer -Size of Tubigrip Used Size D -Size D ($) 1 Left -Multi-Layered Wrap Application Unna Boot - Bilateral ($) -Unna Boots (Bilat) ($) 2 -Tubular Bandage Single Layer -Size of Tubigrip Used Size D -Size D ($) 1 WC - Visit Discharge Discharge Condition Stable Stable Ambulatory Status Ambulatory Ambulatory Transportation Private Auto Private Auto Accompanied by Medication Reconcilliation completed & No provided to patient/care provider Clinical Summary of Care Provided Yes Assessment/Plan Assessment/Plan (1) Leg swelling: CODE(S): M79.89 - Other specified soft tissue disorders (2) Leg edema: CODE(S): R60.0 - Localized edema (3) Dependent edema: CODE(S): R60.9 - Edema, unspecified (4) Arthritis: CODE(S): M19.90 - Unspecified osteoarthritis, unspecified site (5) Lipodermatosclerosis: CODE(S): I83.10 - Varicose veins of unspecified lower extremity with inflammation (6) Hyperpigmentation: CODE(S): L81.9 - Disorder of pigmentation, unspecified (7) Leg pain: CODE(S): M79.606 - Pain in leg, unspecified QUALIFIERS: Laterality: bilateral Qualified Code(s): M79.604 - Pain in right leg; M79.605 - Pain in left leg (8) Status post replacement of left shoulder joint: CODE(S): Z96.612 - Presence of left artificial shoulder joint (9) Status post total hip replacement, right: CODE(S): Z96.641 - Presence of right artificial hip joint (10) Osteoarthritis of hips, bilateral: CODE(S): M16.0 - Bilateral primary osteoarthritis of hip (11) History of arthroplasty of right hip: CODE(S): Z96.641 - Presence of right artificial hip joint (12) Status post total hip replacement, left: CODE(S): Z96.642 - Presence of left artificial hip joint (13) GERD (gastroesophageal reflux disease): CODE(S): K21.9 - Gastro-esophageal reflux disease without esophagitis PLAN: This is an 86-year-old female with swelling and edema in her lower extremities, associated with pain. It appears as though the patient began sleeping in a recliner approximately 1 year ago, following left shoulder replacement surgery. Not long after, she began to develop swelling and edema in her legs, associated with pain, aching, and discomfort. She is not very active, and does not ambulate a great deal. She sits a good deal throughout each day. She is obese. She has graduated compression stockings, which she has been wearing inconsistently. Physical examination reveals swelling and edema with hyperpigmentation and lipodermatosclerosis in the gaiter areas bilaterally. It appears as though the patient's daily habits are contributing to her presenting symptoms and manifestations. We have discussed conservative treatment measures including leg elevation, avoidance of idle standing and sitting, active lifestyle, compression, weight control measures, and pwee-wpa-lobmvuy analgesics. Patient has been discouraged from sleeping in a recliner. She has been advised to sleep on a flat mattress at night. Leg elevation is to be implemented even during daytime hours. Her legs are to be elevated to heart level, or higher. Activity has been encouraged. Weight loss has been recommended. Prolonged idle sitting has been discouraged. We are to continue compression to the lower extremities by means of Tubigrip's of 20 to 30 mmHg compression. These are to be worn on a daily basis. We are to also prescribe graduated compression stockings of 20 to 30 mmHg, and CircAid Velcro compression garments which will provide the patient long-term options for lower extremity compression. Patient is doing well at this time. She is to return in 3 weeks to assess her progress using compression stockings and Velcro compression garments. If she continues to do well, as it is assumed she well, it is anticipated that she will be discharged in the near future. Total time: 29 minutes
[2021-11-16 10:15] VITALS: BP 147/79; PULSE 93; TEMP 36.1; BMI 28.7
--- NOTE | 2021-11-16 11:09 | PCM.WC.HP ---
History of Present Illness Date of Service: 11/16/21 Chief Complaint: Bilateral lower extremity swelling and edema associated with pain, aching, and discomfort History of Wound: This is an 86-year-old female who presented with swelling and edema in her lower extremities bilaterally, which was associated with pain, aching, and discomfort. Her symptoms and manifestations developed over the last year. Shortly prior to the development of these symptoms and manifestations, the patient began sleeping upright in a recliner, having undergone shoulder surgery which made it difficult for her to sleep on a flat mattress. As result, she began sleeping upright in a recliner approximately 1 year ago. Following her habit of sleeping in a recliner, she began to note swelling in her lower extremities. Furthermore, she is not very active during daytime hours, and sits idlly for a good part of each day. She has graduated compression stockings of 15 to 20 mmHg compression, which she wears inconsistently. In addition, her primary care physician has prescribed a water pill. She presented for evaluation stating My legs?they hurt. [facility] Medical History Arthritis Dependent edema History of left shoulder fracture Hyperpigmentation Leg edema Leg pain Leg swelling Lipodermatosclerosis Home Medications aspirin 81 mg chewable tablet 81 mg PO DAILY@0800 ##30 05/26/15 [Rx Last Taken Unknown] famotidine 20 mg tablet 20 mg PO DAILY ##30 05/26/15 [Rx Last Taken Unknown] multivitamin,km-rrvh-xdmnqnqo 27 mg-0.4 mg tablet (Therems-M) 1 tab PO DAILYCM ##30 05/26/15 [Rx Last Taken Unknown] acetaminophen 325 mg tablet (Tylenol) 650 mg PO Q6H PRN PRN Pain 28 days 07/31/15 [Rx Last Taken Unknown] apixaban 5 mg tablet (Eliquis) 5 mg PO BID ##60 08/03/15 [Rx Last Taken Unknown] celecoxib 200 mg capsule 200 mg PO BID ##60 08/03/15 [Rx Last Taken Unknown] famotidine 20 mg tablet 20 mg PO DAILY ##30 08/03/15 [Rx Last Taken Unknown] hydrocodone-acetaminophen 5-325mg 5mg-325mg 1 tab PO Q6H PRN PRN Severe Pain (6-02/28) ##30 08/03/15 [Rx Last Taken Unknown] iron aspgl and ps cmplx 150 mg-vit C 50 mg-succinic acid 50 mg capsule (Ferrex) 150 mg PO DAILY@0800 ##30 08/03/15 [Rx Last Taken Unknown] sulfamethoxazole 800 mg-trimethoprim 160 mg tablet 1 tab PO BIDCM ##10 08/03/15 [Rx Last Taken Unknown] Allergy/AdvReac Type Severity Reaction Status Date / Time Penicillins AdvReac Mild DOES NOT Verified 03/01/21 16:30 WANT IT/ AFRAID cefdinir AdvReac Other Verified 03/01/21 16:30 BLOOD THINNER UNSURE AdvReac Other Uncoded 03/01/21 16:31 Surgical History 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, right Social History Smoking Status: Never smoker Vital Signs Vital Signs Vital Signs: 11/16/21 10:15 Temperature 97.0 F L Temperature Source Temporal Pulse Rate 93 Blood Pressure 147/79 H Blood Pressure Mean 101 Blood Pressure Source Monitor Blood Pressure Position Semi-Fowlers Blood Pressure Location Right Arm Weight Weight: 178 lb Body Mass Index (BMI) 28.7 Physical Exam Const alert, oriented x3, no apparent distress and well nourished General Appearance: cooperative, comfortable, well kempt and well developed Orientation / Consciousness: awake, oriented to person, oriented to place and oriented to time HEENT normocephalic, head/scalp atraumatic and hearing grossly normal bilaterally Head and Scalp: normal to inspection, normocephalic and atraumatic External Ear: external ears normal Eyes PERRL and EOMs intact bilaterally General Eye: normal appearance of both eyes Resp normal respiratory effort, normal air movement, no retractions and no use of accessory muscles Effort and Inspection: able to speak in complete sentences Extremity no calf tenderness General Extremity: Negative for clubbing or cyanosis Skin Wound Narrative: There are no feng open wounds or ulcerations in the patient's lower extremities. The swelling for which she has been recently treated is now much diminished, and virtually negligible. Mild hyperpigmentation and lipodermatosclerosis are noted in the gaiter areas bilaterally. Neuro oriented x3, CN's II-XII intact bilaterally and moves all extremities Sensorium / Orientation: awake, alert, oriented to person, oriented to place and oriented to time Psych Appearance: grossly normal and appropriate Attitude: calm Activity / Motor Behavior: appropriate eye contact Speech: normal speech Mood & Affect: euthymic mood Thought Process: normal thought process Thought Content: normal thought content Attention / Concentration: attention grossly intact Debridement Note Debridement Note No debridement was completed: No debridement was completed today (There are no open wounds or ulcerations.) Post-Debridement Measurements and Additional Note: Post-Debridement Measurements/Treatment - Nurse 1 - General Ulcer Assessment Start: 10/22/21 10:10 Freq: Status: Active Protocol: RUTH Activity Type Activity Date Activity User E-sign Co-sign Detail Recorded Client Recorded Date Recorded By Document 10/22/21 10:10 KATIA [id number] 10/22/21 10:12 Document 10/26/21 10:24 [id number] 10/26/21 10:25 Document 11/16/21 10:15 [id number] 11/16/21 10:22 KR 10/22/21 10/26/21 11/16/21 10:10 10:24 10:15 - Today's Visit Information Type of service Follow-up Visit Follow-up Visit Follow-up Visit (Physician/MANAGER OF CLINICAL (Physician/MANAGER OF CLINICAL (Physician/MANAGER OF CLINICAL ) ) ) Arrival Mode Ambulatory Ambulatory Ambulatory Patient Identification Verified (Name & Yes Yes Yes ) Height and Weight Body Mass Index (BMI) 28.7 28.7 28.7 BMI Classification Overweight Overweight Overweight Vital Signs Temperature (97.8 F-99.1 F) 97.5 F L 96.7 F L 97.0 F L Temperature Source Temporal Temporal Temporal Pulse Rate (60-100) 93 93 93 Pulse Location Monitor Monitor Monitor Blood Pressure (90/60-120/80) 165/90 H 159/83 H 147/79 H Blood Pressure Mean 115 108 101 Source Monitor Monitor Monitor Position Sitting Sitting Semi-Fowlers Blood Pressure Location Left Arm Right Arm Right Arm History Since Last Visit- (Skip if this is Patient's initial visit) Have you changed medications since your No No No last visit? Any new allergies or adverse reactions No No No Had a fall/change in ADL's that may No No No increase risk of falls Signs or symptoms of abuse and/or No No No neglect since last visit Have you been in the hospital since your No No No last visit? Has dressing in place as prescribed No No No Has compression in place as prescribed Yes Yes Yes Has offloadiing in place as prescribed N/A N/A Experienced any changes in pain level or No No No management Left Footwear Regular Shoe Regular Shoe Regular Shoe Right Footwear Regular Shoe Regular Shoe Regular Shoe Pain Scale: 0-10 Numeric Is Patient Pain Free? Yes Yes Yes WC - Nurse 1 - General Ulcer Measurement Start: 10/22/21 10:10 Freq: Status: Active Protocol: Activity Type Activity Date Activity User E-sign Co-sign Detail Recorded Client Recorded Date Recorded By Document 10/26/21 10:24 KR [id number] 10/26/21 10:25 KR Document 11/16/21 10:15 KR [id number] 11/16/21 10:22 KR 10/26/21 11/16/21 10:24 10:15 Wound Center Nurse 1 Right Calf (cm) 36 40.8 Right Ankle (cm) 24 26 Left Calf (cm) 37.5 41 Left Ankle (cm) 26 29 WC - Nurse 3 - General Ulcer D/C NN Start: 10/22/21 10:10 Freq: Status: Active Protocol: Activity Type Activity Date Activity User E-sign Co-sign Detail Recorded Client Recorded Date Recorded By Document 10/22/21 10:10 KR [id number] 10/22/21 10:12 KR Document 10/26/21 11:01 ML [id number] 10/26/21 11:02 ML 10/22/21 10/26/21 10:10 11:01 Vital Signs Temperature (97.8 F-99.1 F) 97.5 F L Temperature Source Temporal Pulse Rate (60-100) 93 Pulse Location Monitor Blood Pressure (90/60-120/80) 165/90 H Blood Pressure Mean 115 Source Monitor Position Sitting Blood Pressure Location Left Arm Pain Scale: 0-10 Numeric Is Patient Pain Free? Yes Yes Wound Care Nurse 3 Right -Tubular Bandage Single Layer -Size of Tubigrip Used Size D -Size D ($) 1 Left -Multi-Layered Wrap Application Unna Boot - Bilateral ($) -Unna Boots (Bilat) ($) 2 -Tubular Bandage Single Layer -Size of Tubigrip Used Size D -Size D ($) 1 WC - Visit Discharge Discharge Condition Stable Stable Ambulatory Status Ambulatory Ambulatory Transportation Private Auto Private Auto Accompanied by Medication Reconcilliation completed & No provided to patient/care provider Clinical Summary of Care Provided Yes Assessment/Plan Assessment/Plan (1) Leg swelling: CODE(S): M79.89 - Other specified soft tissue disorders (2) Leg edema: CODE(S): R60.0 - Localized edema (3) Dependent edema: CODE(S): R60.9 - Edema, unspecified (4) Arthritis: CODE(S): M19.90 - Unspecified osteoarthritis, unspecified site (5) Lipodermatosclerosis: CODE(S): I83.10 - Varicose veins of unspecified lower extremity with inflammation (6) Hyperpigmentation: CODE(S): L81.9 - Disorder of pigmentation, unspecified (7) Leg pain: CODE(S): M79.606 - Pain in leg, unspecified QUALIFIERS: Laterality: bilateral Qualified Code(s): M79.604 - Pain in right leg; M79.605 - Pain in left leg (8) Status post replacement of left shoulder joint: CODE(S): Z96.612 - Presence of left artificial shoulder joint (9) Status post total hip replacement, right: CODE(S): Z96.641 - Presence of right artificial hip joint (10) Osteoarthritis of hips, bilateral: CODE(S): M16.0 - Bilateral primary osteoarthritis of hip (11) History of arthroplasty of right hip: CODE(S): Z96.641 - Presence of right artificial hip joint (12) Status post total hip replacement, left: CODE(S): Z96.642 - Presence of left artificial hip joint (13) GERD (gastroesophageal reflux disease): CODE(S): K21.9 - Gastro-esophageal reflux disease without esophagitis PLAN: Plan This is an 86-year-old female with swelling and edema in her lower extremities, associated with pain. It appears as though the patient began sleeping in a recliner approximately 1 year ago, following left shoulder replacement surgery. Not long after, she began to develop swelling and edema in her legs, associated with pain, aching, and discomfort. She is not very active, and does not ambulate a great deal. She sits a good deal throughout each day. She is obese. She has graduated compression stockings, which she has been wearing inconsistently. Physical examination reveals swelling and edema with hyperpigmentation and lipodermatosclerosis in the gaiter areas bilaterally. It appears as though the patient's daily habits are contributing to her presenting symptoms and manifestations. We have discussed conservative treatment measures including leg elevation, avoidance of idle standing and sitting, active lifestyle, compression, weight control measures, and [id number]-std-jovkaru analgesics. Patient has been discouraged from sleeping in a recliner. She has been advised to sleep on a flat mattress at night. Leg elevation is to be implemented even during daytime hours. Her legs are to be elevated to heart level, or higher. Activity has been encouraged. Weight loss has been recommended. Prolonged idle sitting has been discouraged. We have prescribed knee-high graduated compression stockings of 20 to 30 mmHg, and CircAid Velcro compression garments which will provide the patient long-term options for lower extremity compression. The patient has obtained graduated compression stockings, as prescribed, as well as donning devices. She has been wearing her compression stockings on a daily basis, and is quite pleased with the results. Patient is doing well at this time. Her swelling is now minimal, and she has been wearing her graduated compression stockings on a daily basis, agreeing to do so long-term. Therefore, she is to be discharged, understanding that conservative treatment measures which have been discussed are to be continued for the long-term. She will follow-up henceforth on an as-needed basis. Total time: 28 minutes
== END 2021-11-18 14:53 | disposition home or self-care (01) ==
LOC: WC 10:15
PROVIDERS: PCP Family Medicine; Visit Provider Surgery
DX: I83.11 Varicose veins of right lower extremity with inflammation (principal); I83.12 Varicose veins of left lower extremity with inflammation; R60.0 Localized edema; M79.604 Pain in right leg; M79.605 Pain in left leg; M16.0 Bilateral primary osteoarthritis of hip; K21.9 Gastro-esophageal reflux disease without esophagitis; M19.90 Unspecified osteoarthritis, unspecified site; Z79.82 Long term (current) use of aspirin; Z79.01 Long term (current) use of anticoagulants; Z79.899 Other long term (current) drug therapy; Z96.612 Presence of left artificial shoulder joint; Z96.643 Presence of artificial hip joint, bilateral
CPT/HCPCS: 29580; 99213; G0463